=== PATIENT | male | born 1945 | race Caucasian/White ===

== ENCOUNTER 2017-02-10 05:12 | Day surgery (SDC) | payer OTHER ==
[~2017-02-10] VITALS: Ht 163.8 cm; Wt 80.0 kg
[~2017-02-10 05:12] MED LIST: ALLO100T30 PO; APIX5TAB PO; DIVA-68 PO; METO-99 PO; MULT-758 PO
[2017-02-10] MEDS ORDERED: LACTATED RINGERS 1,000 ML IV SCH (06:00)
[2017-02-10 06:01] VITALS: BP 124/88
[2017-02-10] MEDS ORDERED: BUPIVACAINE/PF 0.5% ONE (06:59)
[2017-02-10] MEDS ORDERED: EPINEPHRINE 1 MG/ML, 1ML ONE (06:59)
[2017-02-10] MEDS ORDERED: ONDANSETRON 2MG/ML, 2ML ONE (07:12)
[2017-02-10] MEDS ORDERED: CEFAZOLIN 1,000 MG ONE ×2 (07:12)
[2017-02-10] MEDS ORDERED: PROPOFOL 10 MG/ML, 20ML ONE ×3 (07:12)
[2017-02-10] MEDS ORDERED: DEXAMETHASONE 4 MG/ML, 1ML ONE ×2 (07:12→07:13)
[2017-02-10] MEDS ORDERED: FENTANYL PF 100 MCG/2ML ONE (07:22)
[2017-02-10] MEDS ORDERED: MIDAZOLAM 1 MG/ML, 2ML ONE (07:22)
[2017-02-10] MEDS ORDERED: ESMOLOL 100 MG/10 ML ONE (07:59)
[2017-02-10] MEDS ORDERED: METOPROLOL 1 MG/ML, 5ML ONE (08:00)
[2017-02-10] MEDS ORDERED: PROMETHAZINE 25 MG/ML, 1ML IV PRN (08:30)
[2017-02-10] MEDS ORDERED: ACETAMINOPHEN 325 MG TABLET PO PRN (08:30)
[2017-02-10] MEDS ORDERED: OXYcodone 5 MG/5 ML ORAL.SOL UDC PO PRN (08:30)
[2017-02-10] MEDS ORDERED: FENTANYL PF 100 MCG/2ML IV PRN (08:30)
== END 2017-02-10 09:35 ==
LOC: OUT 05:12
PROVIDERS: ATTEND Surgery
DX: M06.9 Rheumatoid arthritis, unspecified (principal); M10.9 Gout, unspecified; Z88.1 Allergy status to other antibiotic agents; Z87.39 Personal history of other diseases of the musculoskeletal system and connective tissue; Z98.890 Other specified postprocedural states; Z96.698 Presence of other orthopedic joint implants
CPT/HCPCS: 20205; 88300; 99001; J0171; J0690; J1100; J2250; J2405; J2704; J3010; J3490; J7120

== ENCOUNTER 2020-06-02 09:49 | Outpatient (CLI) | payer MEDICARE ==
[~2020-06-02 09:49] MED LIST changes: +DIVA-61 PO; -DIVA-68 PO
[2020-06-02 11:33] LABS: BASOPHILS % (AUTO) 1 % (0-1); EOSINOPHILS % (AUTO) 2 % (1-7); LYMPHOCYTES % (AUTO) 35 % (22-44); MEAN CORPUSCULAR HEMOGLOBIN 30.9 pg (27.5-34.5); MEAN CORPUSCULAR HGB CONC 33.3 g/dL (33.2-36.2); MEAN PLATELET VOLUME 10.5 fL (7.4-10.4); MONOCYTES % (AUTO) 8 % (2-9); NEUTROPHILS % (AUTO) 54 % (42-75); PLATELET COUNT 198 x10^3/uL (130-400); RED BLOOD COUNT 5.72 x10^6/uL (4.38-5.82); RED CELL DISTRIBUTION WIDTH 14.6 % (9.4-14.8)
[2020-06-02 11:34] LABS: MD NO
[2020-06-02 11:45] LABS: ALBUMIN 3.5 g/dL (3.4-5.0); ANION GAP 6 mmol/L (5-15); CHLORIDE 105 mmol/L (98-107)
[2020-06-02 12:11] LABS: ALANINE AMINOTRANSFERASE 22 U/L (12-78); ALKALINE PHOSPHATASE 69 U/L (45-117); BILIRUBIN,TOTAL 0.6 mg/dL (0.2-1.0); CHOL/HDL RATIO 2.9; CHOLESTEROL, TOTAL 184 mg/dL (140-239); CREATININE 0.88 mg/dL (0.7-1.3); HDL CHOL % 34 % (26-37); HDL CHOLESTEROL (DIRECT) 63 mg/dL (40-60); LDL CHOLESTEROL,CALCULATED 95 mg/dL (54-169); LDL/HDL RATIO 1.5 (0.5-3.0); TOTAL PROTEIN 8.3 g/dL (6.4-8.2); TRIGLYCERIDES 129 mg/dL (50-200); VLDL CHOLESTEROL 26 mg/dL (0-25)
== END 2020-06-02 23:59 | disposition home or self-care (01) ==
LOC: CVU 09:49
PROVIDERS: ATTEND Nurse Practitioner Family
DX: I08.2 Rheumatic disorders of both aortic and tricuspid valves (principal); I48.91 Unspecified atrial fibrillation; B07.8 Other viral warts; D48.5 Neoplasm of uncertain behavior of skin; D72.820 Lymphocytosis (symptomatic); D72.829 Elevated white blood cell count, unspecified; E66.9 Obesity, unspecified; F31.9 Bipolar disorder, unspecified; G72.41 Inclusion body myositis [IBM]; H68.103 Unspecified obstruction of Eustachian tube, bilateral; H91.90 Unspecified hearing loss, unspecified ear; H91.93 Unspecified hearing loss, bilateral
CPT/HCPCS: 36415; 80053; 80061; 80164; 83880; 85025; 93306